=== PATIENT | male | born 1960 | race Caucasian/White ===

== ENCOUNTER 2022-08-19 09:19 | Emergency (ER) | payer SELFPAY ==
[2022-08-19 09:22] VITALS: BP 167/90; PULSE 69; RESP 18; TEMP 36.5; O2SAT 98
--- NOTE | 2022-08-19 09:30 | DI.CT_ITS ---
Exam(s) CT RENAL COLIC WO EXAM: CT RENAL COLIC WO CLINICAL HISTORY: R flank pain, hx stones. TECHNIQUE: Imaging Protocol: Axial computed tomography images with coronal and sagittal reformatted images were created and reviewed CONTRAST MATERIAL: Intravenous: none Oral: None COMPARISON: No exams were available for comparison FINDINGS: VISUALIZED LUNG BASES: No nodules nor pleural effusions evident. ABDOMEN: There is no ascites. LIVER: There are no obvious focal hepatic lesions evident of this noninfused study. GALLBLADDER/BILIARY: No obvious gallbladder pathology. CBD is not dilated. PANCREAS: No evidence of pancreatic mass nor dilatation of the pancreatic duct. SPLEEN: Spleen is not enlarged. No obvious intrasplenic lesions. ADRENALS: There are no significant adrenal masses. KIDNEYS:Left kidney unremarkable. In the right kidney there are both intrarenal calculi as well as a n obstructing calculus in the mid right ureter with dilatation of the ureter and kidney above this le jay as well as perinephric stranding. This obstructing calculus measures approximately 5 x 4 millime ters. There are no additional calculi seen in the right ureter below this level nor in the nondisten ded urinary bladder. There is, however, a larger calculus remaining in the right kidney measuring 1. 3 x 0.9 cm. Additional other tiny calculi are still evident in the right kidney. There are no calcu li in the opposite-left kidney.. ABDOMINAL AORTA: Abdominal aorta is not enlarged. LYMPH NODES: There is no retroperitoneal nor paraaortic adenopathy. ABDOMINAL WALL: No evidence of significant anterior abdominal wall nor inguinal hernia. GI: There is no evidence of bowel obstruction, free air, nor abscess. PELVIS: LYMPH NODES: There is no intrapelvic nor inguinal adenopathy. GI: No evidence of appendicitis.Sigmoid diverticulosis without evidence of acute diverticulitis. URINARY BLADDER: No calculi nor obvious masses evident REPRODUCTIVE: Prostate size upper normal. Seminal vesicles unremarkable. OSSEOUS: No significant osseous lesions. No fractures. There is ankylosis of the sacroiliac joints noted. IMPRESSION: 1. There is an obstructing 5 x 4 millimeter calculus at the mid level of the right ureter with signif icant dilatation of the collecting system above this level and perinephric decompression stranding. In addition, there are remaining calculi in the right kidney measuring up to 13 x 9 millimeters. No other significant focal renal findings and no findings in the opposite-left kidney. No calculi in th e urinary bladder. 2. Sigmoid diverticulosis but no evidence of acute diverticulitis. Called by myself to ER physician RADIATION DOSE DELIVERED: 849.11mGy.cm Total DLP DATA REPOSITORY: All CT scans at this facility are submitted to the National Radiology Data Registry (NRDR) Dose Index Registry (DIR) with the [employer] (ACR). RADIATION OPTIMIZATION: All CT scans at this facility use at least one of these dose optimization te chniques: automated exposure control; mA and/or kV adjustment per patient size (includes targeted exa ms where dose is matched to clinical indication); or iterative reconstruction.
--- NOTE | 2022-08-19 09:35 | W.ED.GENAD ---
Discharge Plan Disposition Patient Disposition: Home Condition: Improving Discharge Details Clinical Impression: Calculus of right ureter Primary Care Provider: Brenda,Local ED Provider: Mitchell Bermudez Home Meds and New Rx's Prescriptions: New oxycodone 5 mg tablet 5 mg PO Q8H PRN (Reason: pain) Qty: 9 0RF ondansetron 4 mg tablet,disintegrating 4 mg PO Q8H PRN (Reason: nausea and vomiting) Qty: 7 0RF Continued amlodipine 10 mg Tablet 10 mg PO DAILY pantoprazole 40 mg Tablet,Delayed Release (Dr/Ec) 40 mg PO DAILY celecoxib [Celebrex] 100 mg Capsule 100 mg PO BID Humira 40 mg/0.8 mL Syringe Kit See Rx Instructions .ROUTE .COMPLEX Rx Instructions: 40 mg subcutaneously twice a month pregabalin [Lyrica] 150 mg Capsule 150 mg PO DAILY Discharge Instructions Instructions: Kidney Stones (ED) Additional Instructions: I discussed your case with Dr. Bustos today. His office will call you for a follow-up appointment. The office number is [phone]. Return if you develop a fever, uncontrolled pain or vomiting, or any other acute concerns. Continue your regular medications including Flomax daily. Hydrate liberally so you maintain good urine output. Tylenol if needed for pain, with the prescribed oxycodone if needed for severe or breakthrough pain. Medical Decision Making This is a 61-year-old male with a history of previous kidney stones. He is visiting from [place] where he lives permanently, but is assisting his father at their home locally. He notes he developed onset of right-sided flank pain last night at 8 PM. He states that it comes in waves and radiates to his groin. He has been nauseated but no fever or vomiting. Has a history of ankylosing spondylitis for which she takes adalimumab. Arrives afebrile, and pain with blood pressure 167/90. Patient IV access established, screening labs obtained. Referred for urinalysis, lab studies, CT imaging. Urinalysis shows hematuria and ketones. BUN is 21, creatinine 1.8. White blood cell count 14, hematocrit 42, platelets 228. Electrolytes unremarkable. CT reveals right sided mid ureteral calculus with hydronephrosis. Case discussed and images reviewed with Dr. Bustos on-call for urology. He agrees with the need for probable intervention should the patient not passed the stone over the next 1 to 2 days. We will continue the Flomax. I will consent the patient for the use of oral analgesic at home. He is stable and improving at this time HPI General Mode of arrival: ambulatory. Date/Time Provider Initiated Documentation: 08/19/22 09:19. Limitations to Documentation: no limitations. Information obtained by: patient. History of Present Illness 61 year old M presents to the emergency department with the chief complaint of Right flank pain since 8 PM last night, described as moderate, severe and similar to prior episodes, Quality is described as stabbing and aching, and is localized to the back and left. Patient abdomen. Patient started experiencing this hour(s) and it has been intermittent. No relieving factors improve symptom(s), No exacerbating factors reported . Patient notes loss of appetite; denies chest pain, fever/chills and shortness of breath. Patient did receive the following treatments prior to arrival, other (Had [id number] pain medicines last night, none today) Related Data Home Medications Medication Instructions Recorded Confirmed adalimumab 40 mg/0.8 mL See Rx Instructions .Route .COMPLEX 08/19/22 08/19/22 subcutaneous syringe kit (Humira) amlodipine 10 mg tablet 10 mg PO DAILY 08/19/22 08/19/22 celecoxib 100 mg capsule (Celebrex) 100 mg PO BID 08/19/22 08/19/22 ondansetron 4 mg disintegrating 4 mg PO Q8H PRN nausea and 08/19/22 tablet vomiting #7 tabs oxycodone 5 mg tablet 5 mg PO Q8H PRN pain #9 tabs 08/19/22 pantoprazole 40 mg tablet,delayed 40 mg PO DAILY 08/19/22 08/19/22 release pregabalin 150 mg capsule (Lyrica) 150 mg PO DAILY 08/19/22 08/19/22 Previous Rx's Medication Instructions Recorded ondansetron 4 mg disintegrating 4 mg PO Q8H PRN nausea and 08/19/22 tablet vomiting #7 tabs oxycodone 5 mg tablet 5 mg PO Q8H PRN pain #9 tabs 08/19/22 Allergies Allergy/AdvReac Type Severity Reaction Status Date / Time No Known Allergies Allergy Unverified 08/19/22 09:25 General Stated Complaint: FlankPain JEFF: 3 Review of Systems Narrative: No fever, chills. Nauseated but no emesis. Recently well. Has ankylosing spondylitis he takes Humira. Lives in [place] but visiting with his father locally. 8 systems were reviewed. PFSH All Active Problems (Updated 08/19/22 @ 10:35 by Mitchell Bermudez MD) Calculus of right ureter (Acute) GERD (gastroesophageal reflux disease) (Chronic) Ankylosing spondylitis (Acute) Social History Smoking/Tobacco Use Status: Never Smoking risk assessment performed?: Yes Drug use: Occasionally Substance use type: marijuana Do you feel safe at home: Yes Do you feel safe in your relationship?: Yes Exam Narrative Exam Narrative: GEN: awake, alert, oriented 3. Pleasant, well groomed, interactive. HEAD: Normocephalic, atraumatic ENT: Mucous membranes moist, oropharynx unremarkable, External ear exam unremarkable EYES: PERRL, EOMI NECK: Full ROM, no IMANI, no menigismus CHEST/RESP: Nontender, clear to auscultation bilateral, no wheeze/rhonchi/rales CARDIOVASCULAR: RRR, no murmur, rub rodrigo. 2+ Rad pulse bilateral ABDOMEN: Soft, tender in the right lower quadrant and right flank. No rebound or guarding,, no mass. +Bowel sounds EXT: Full ROM, no edema, no rash Neuro: Grossly normal neurologic exam, conversant, interactive. Psych: Speech fluent, thoughts congruent, affect normal Course Vital Signs Vital signs: Vital Signs Temperature 36.5 C 08/19/22 09:22 Pulse 69 08/19/22 09:22 Respiratory Rate 18 08/19/22 09:22 Blood Pressure 167/90 H 08/19/22 09:22 Pulse Oximetry 98 08/19/22 09:22 Temperature 36.5 C 08/19/22 09:22 Temperature Source Skin 08/19/22 09:22 Pulse 69 08/19/22 09:22 Respiratory Rate 18 08/19/22 09:22 Respiratory Effort 08/19/22 09:24 Blood Pressure 167/90 H 08/19/22 09:22 Blood Pressure Position Supine 08/19/22 09:22 Pulse Oximetry 98 08/19/22 09:22 Oxygen Delivery Method Room Air 08/19/22 09:22 Oxygen Flow Rate 0 08/19/22 09:22 Pain Level 8 08/19/22 09:22
[2022-08-19 09:46] LABS: Abs Immature Grans 0.05 10^3/uL (0.0-0.06); Absolute Basophil Count 0.04 10^3/uL (0.0-0.2); Absolute Monocyte Count 1.19 10^3/uL (0.1-0.8); Basophils % 0.3; Eosinophils % 0.1; HCT 42.4 % (40.0-50.0); HGB 14.2 g/dL (13.5-17.5); Immature Grans % 0.3; Lymphocytes % 6.6; MCH 30.6 pg (27.0-33.0); MCHC 33.5 % (32.0-36.0); MCV 91 fL (80-95); MPV 9.5 fL (8.0-11.0); Monocytes % 8.1; Neutrophils % 84.6; Platelet Count 228 10^3/uL (130-400); RBC 4.64 10^6/uL (4.36-5.78); RDW 12.6 % (11.8-14.1); RDW-SD 42.1 fL; WBC 14.64 10^3/uL (4.4-10.8)
[2022-08-19 09:49] LABS: Absolute Eosinophil Count 0.01 10^3/uL (0.0-0.7); Absolute Lymphocyte Count 0.97 10^3/uL (1.2-3.4); Absolute Neutrophil Count 12.39 10^3/uL (1.2-6.7)
[2022-08-19 09:56] LABS: Anion Gap 9.6 mmol/L (3-11); BUN 21 mg/dL (7-18); CO2 24.4 mmol/L (21.0-32.0); CREATININE 1.8 mg/dL (0.70-1.30); Chloride 102 mmol/L (98-107); Estimated GFR 41.77 (mL/min/1.73m2); Glucose 139 mg/dL (74-106); Sodium 136 mmol/L (136-145)
[2022-08-19] MEDS: Ketorolac 30 MG/ML VIAL 15 MG IVP (09:57)
[2022-08-19] MEDS: Ondansetron 4 MG/2 ML VIAL IVP (09:57)
[2022-08-19] MEDS: Normal Saline 1,000 ML 150 ML IV (09:57)
[2022-08-19] MEDS: Normal Saline Flush 10 ML SYR IVP (09:58)
[2022-08-19] MEDS: HYDROmorphone 2 MG/ML SYR 1 MG IVP (09:58)
[2022-08-19 10:02] LABS: Bilirubin Negative (Negative); Blood Moderate (Negative); Clarity Clear (Clear); Glucose Negative (Negative); Ketones 80 mg/dL (Negative); Leukocyte Esterase Negative (Negative); Nitrite Negative (Negative); Specific Gravity >= 1.030 (1.005-1.025); Urobilinogen 0.2 EU/dL (Up TO 0.2); pH 5.5 (5-8)
[2022-08-19 10:09] LABS: Bacteria Rare HPF (Negative); C & S Indicated? No; Casts Negative LPF (Negative); Crystals Rare Calcium Oxalate HPF (Negative); Epithelial Cells Rare HPF (Negative); Mucus Trace (Negative); WBC 0-2 HPF (0-5)
[2022-08-19 11:03] VITALS: BP 145/88; PULSE 64; RESP 14; TEMP 36.6; O2SAT 94
== END 2022-08-19 11:11 | disposition home or self-care (01) ==
PROVIDERS: Emergency Provider Emergency Medicine
DX: N13.2 Hydronephrosis with renal and ureteral calculous obstruction (principal)
CPT/HCPCS: 80048; 96361; 96374; 96375; 99284; 74176; 81003; 81015; 85025; J1170; J1885; J2405

== ENCOUNTER 2022-09-11 09:13 | Day surgery (SDC) | payer SELFPAY ==
[2022-09-11] VITALS (7 sets, daily range): BP systolic 115–134; BP diastolic 72–85; PULSE 44–54; RESP 10–16; TEMP 36.5–36.7; O2SAT 96–100; BMI 28.9
[2022-09-11] MEDS: Lactated Ringers 1,000 ML 80 ML IV (10:05)
--- NOTE | 2022-09-11 11:31 | W.ANESPRE ---
General Info Date of Service Date Performed: 09/11/22 Height: 5 ft 6 in Weight: 81.3 kg Body Mass Index (BMI): 28.9 Surgical Procedure: Operation Date: 09/11/22 11:25 Proposed Procedure Side Surgeon p Cystoscopy/Possible Laser/Retrograde/Ureteroscopy/ Possible Stent Placement Right Sree Bustos MD Meds Allergies and Home Medications Allergies Allergy/AdvReac Type Severity Reaction Status Date / Time No Known Allergies Allergy Unverified 09/09/22 15:34 Home Medication Medication Instructions Recorded adalimumab 40 mg/0.8 mL See Rx Instructions .Route .COMPLEX 08/19/22 subcutaneous syringe kit (Humira) amlodipine 10 mg tablet 10 mg PO HS 08/19/22 celecoxib 100 mg capsule (Celebrex) 100 mg PO BID 08/19/22 ondansetron 4 mg disintegrating 4 mg PO Q8H PRN nausea and 08/19/22 tablet vomiting #7 tabs pantoprazole 40 mg tablet,delayed 40 mg PO HS 08/19/22 release dexamethasone 1 mg tablet 1 mg PO DAILY 09/04/22 oxycodone 5 mg tablet 5 mg PO Q4H PRN PRN pain #20 tabs 09/04/22 pregabalin 150 mg capsule (Lyrica) 75 mg PO HS 09/04/22 tamsulosin 0.4 mg capsule (Flomax) 0.4 mg PO DAILY 09/04/22 Current Visit Medications: Current Medications Generic Name Dose Route Start Last Admin Trade Name Freq PRN Reason Stop Dose Admin Ringer's Solution 1,000 mls @ 80 mls/hr 09/11/22 06:00 09/11/22 10:05 IV 09/11/22 23:59 80 mls/hr INFUSION KARELY Administration Cefazolin Sodium/Dextrose 2 gm in 50 mls @ 100 mls/hr 09/11/22 06:00 Ancef Duplex IVPB 09/11/22 23:59 PREOP KARELY Gentamicin Sulfate 120 mg/ 103 mls @ 206 mls/hr 09/11/22 06:00 Sodium Chloride IVPB 09/11/22 16:00 PREOP KARELY IV Miscellaneous Supplies 1 each 09/11/22 06:00 Iv Access IV 09/11/22 23:59 DIRECTED KARELY Sodium Chloride 0 ml 09/11/22 06:00 Normal Saline Flush 10 Ml Syr IV 09/11/22 23:59 PRN PRN Sodium Chloride 0 ml 09/11/22 06:00 Normal Saline 10 Ml Vial IJ 09/11/22 23:59 DIRECTED PRN Sterile Water 0 ml 09/11/22 06:00 Water,Injection,Sterile 10 Ml Vial IJ 09/11/22 23:59 DIRECTED PRN PFSH Active Problems Active Problems: Problem Status Onset Code Calculus of right ureter N20.1 Medical History Medical History Ankylosing spondylitis GERD (gastroesophageal reflux disease) Rheumatoid aortitis Surgical History Surgical History Status post total shoulder arthroplasty Tobacco Smoking/Tobacco Use Status: Former Tobacco Use Substance Use Substance use: Occasionally Substance use type: marijuana Vital Signs and Lab Results Vital Signs Most Recent Vital Signs in EMR: Most Recent Vital Signs Temp Pulse Resp BP Pulse Ox 36.5 C 54 L 16 132/78 97 09/11/22 09:35 09/11/22 09:35 09/11/22 09:35 09/11/22 09:35 09/11/22 09:35 Lab Results Blood Type / Crossmatch: No Data to Display Complete Blood Count: White Blood Count 14.64 10^3/uL (4.4-10.8) H 08/19/22 09:35 Red Blood Count 4.64 10^6/uL (4.36-5.78) 08/19/22 09:35 Hemoglobin 14.2 g/dL (13.5-17.5) 08/19/22 09:35 Hematocrit 42.4 % (40.0-50.0) 08/19/22 09:35 Platelet Count 228 10^3/uL (130-400) 08/19/22 09:35 Complete Metabolic Panel: Sodium 136 mmol/L (136-145) 08/19/22 09:35 Potassium 4.0 mmol/L (3.5-5.1) 08/19/22 09:35 Chloride 102 mmol/L (98-107) 08/19/22 09:35 Carbon Dioxide 24.4 mmol/L (21.0-32.0) 08/19/22 09:35 BUN 21 mg/dL (7-18) H 08/19/22 09:35 Creatinine 1.8 mg/dL (0.70-1.30) H 08/19/22 09:35 Est GFR (CKD-EPI 2020) 41.77 (mL/min/1.73m2) 08/19/22 09:35 Calcium 9.0 mg/dL (8.5-10.1) 08/19/22 09:35 Glucose 139 mg/dL (74-106) H 08/19/22 09:35 Liver Function Panel: No Data to Display Coagulation Panel: No Data to Display Cardiac Panel: No Data to Display Arterial Blood Gas: No Data to Display Venous Blood Gas: No Data to Display Pancreas Panel: No Data to Display Thyroid Panel: No Data to Display Infectious Disease: No Data to Display Blood Cultures: No Data to Display Toxicology Panel: No Data to Display Anesthesia Assessment and Plan Anesthesia History Personal History: No History of Anesthesia Complications Family History: No Family History of Anesthesia Complications Exercise Tolerance Exercise Tolerance: Metabolic Equivalents>4 Pertinent Negatives Pertinent Negatives: No Symptoms of GERD (controlled w meds) and No Major Cardiovascular Symptoms or Complaints Cardiac & Pulmonary Exam Cardiac Exam: Normal S1/S2 Heart Sounds Pulmonary Exam: Clear Bilateral Breath Sounds Implantable Cardiac Device Does patient have a Pacemaker or an ICD?: No Airway Exam Known Difficult Airway: No Mallampati Class: 3 Mouth Opening: Normal (> 3cm) Thyromental Distance: Greater than 3 cm Neck Range of Motion: Limited ROM Neck Circumference: Thick Teeth Condition: Normal Dentition ASA Classification ASA Score: ASA 2 Emergency Case?: No NPO Status NPO Status: NPO Clears >2 hours, Solids >8 hours Anesthesia Plan Resuscitation Status: Full Code Anesthesia Technique: General Anesthesia Airway Planned: LMA Monitors Used: Standard Monitors Preoperative Comments:: Has back ache. Will give 15 Christi dol iv
[2022-09-11] MEDS: GENTAMICIN 120 MG in Normal Saline 100 ML 206 MG IVPB (11:52)
[2022-09-11] MEDS: Ketorolac 15 MG/ML VIAL IVP (11:58)
--- NOTE | 2022-09-11 12:30 | DI.RAD_ITS ---
Exam(s) XR RETROGRADE IN OR EXAM: XR RETROGRADE IN OR CLINICAL HISTORY: RIGHT URETERAL STONE. TECHNIQUE: 2D digital imaging was performed. COMPARISON: No exams were available for comparison FINDINGS: Fluoroscopy provided during urologic procedure by the urologist. See procedure report for details. Total fluoroscopy time 47 seconds IMPRESSION: Radiation exposure index cumulative dose: Parisr=11.13mGY DATA REPOSITORY: RADIATION DOSE DELIVERED:
--- NOTE | 2022-09-11 12:30 | W.PM.HP.N ---
Date of service: 09/11/22 Time of Service: 12:30 Assessment and Plan Assessment and plan (1) Calculus of right ureter: Status: Acute Assessment and plan: He has not passed his stone with conservative management. We will move forward with ureteroscopy, possible holmium laser lithotripsy and stone manipulation of his obstructing right ureteral stone. History of Present Illness History of Present Illness Chief Complaint: Ureteral stone Narrative: This is a 61-year-old gentleman who a history of multiple kidney stones.? He believes his stones have been bilateral.? He is not certain about the stones chemical composition. In the past, he has been treated with ESWL on at least 3 occasions.? He has also passed stones spontaneously.? His previous urologic care occurred in [place].? He is still a resident in [place], but is currently here in [place] helping his father after his mother recently . He went to the emergency room about 3 weeks ago with right-sided back pain and nausea.? He was found to have multiple nonobstructing stones in the right kidney (including a 13 mm stone in the right upper pole) as well and has a 5 mm mid ureteral stone on the right. He has been unable to pass his stone with conservative management. He has intermittent pain but no fever or chills. He may have seen gross hematuria on ne occasion. Review of Systems Narrative: No fevers or chills No vision change or dysphasia No diabetes or thyroid No shortness of breath, cough or hemoptysis No chest pain or palpitations Hx GERD. No hepatitis, ulcers, jaundice No seizures, strokes or peripheral neuropathy No bleeding disorders or anemia No gout PFSH All Active Problems Calculus of right ureter (Acute) Medical History Ankylosing spondylitis GERD (gastroesophageal reflux disease) Rheumatoid aortitis Surgical History Status post total shoulder arthroplasty Social History Smoking/Tobacco Use Status: Former Tobacco Use Quit Date: 07/27/86 Smoking risk assessment performed?: Yes Drug use: Occasionally Substance use type: marijuana Do you feel safe at home: Yes Do you feel safe in your relationship?: Yes Meds Allergies and Home Medications Allergies Allergy/AdvReac Type Severity Reaction Status Date / Time No Known Allergies Allergy Unverified 09/09/22 15:34 Home Medications Medication Instructions Recorded Confirmed Type adalimumab 40 mg/0.8 mL See Rx Instructions .Route .COMPLEX 08/19/22 09/11/22 History subcutaneous syringe kit (Humira) amlodipine 10 mg tablet 10 mg PO HS 08/19/22 09/11/22 History celecoxib 100 mg capsule (Celebrex) 100 mg PO BID 08/19/22 09/11/22 History ondansetron 4 mg disintegrating 4 mg PO Q8H PRN nausea and 08/19/22 09/09/22 Rx tablet vomiting #7 tabs pantoprazole 40 mg tablet,delayed 40 mg PO HS 08/19/22 09/11/22 History release dexamethasone 1 mg tablet 1 mg PO DAILY 09/04/22 09/11/22 History oxycodone 5 mg tablet 5 mg PO Q4H PRN PRN pain #20 tabs 09/04/22 09/11/22 Rx pregabalin 150 mg capsule (Lyrica) 75 mg PO HS 09/04/22 09/11/22 History tamsulosin 0.4 mg capsule (Flomax) 0.4 mg PO DAILY 09/04/22 09/11/22 History Exam Const General: cooperative Neck Neck: supple Resp Effort & Inspection: normal respiratory effort Auscultation: clear to auscultation bilaterally Cardio Rate: regular rate Rhythm: regular rhythm Neuro General: patient alert, patient awake and patient oriented x3 Results Last Vital Signs Temp 36.5 C 09/11/22 09:35 Pulse 54 L 09/11/22 09:35 Resp 16 09/11/22 09:35 BP 132/78 09/11/22 09:35 Pulse Ox 97 09/11/22 09:35 Time Spent Time spent with Patient: <40 minutes Time was spent: other
[2022-09-11] MEDS: ceFAZolin 2 GM/50 ML BAG IVPB (13:09)
[2022-09-11] MEDS: Lidocaine 2% Jelly 6 ML SYR (13:25)
--- NOTE | 2022-09-11 13:38 | W.ANESPRE ---
General Info Date of Service Date Performed: 09/11/22 Height: 5 ft 6 in Weight: 81.3 kg Body Mass Index (BMI): 28.9 Surgical Procedure: Operation Date: 09/11/22 11:25 Proposed Procedure Side Surgeon p Cystoscopy/Possible Laser/Retrograde/Ureteroscopy/ Possible Stent Placement Right Sree Bustos MD Actual Procedure Side Surgeon p Cystoscopy/Laser/Retrograde pyleogram/Ureteroscopy/ Possible Stent Placement Right Sree Bustos MD Pre-Op Diagnosis Post-Op Diagnosis RIGHT URETERAL STONE RIGHT URETERAL STONE Meds Allergies and Home Medications Allergies Allergy/AdvReac Type Severity Reaction Status Date / Time No Known Allergies Allergy Unverified 09/09/22 15:34 Home Medication Medication Instructions Recorded adalimumab 40 mg/0.8 mL See Rx Instructions .Route .COMPLEX 08/19/22 subcutaneous syringe kit (Humira) amlodipine 10 mg tablet 10 mg PO HS 08/19/22 celecoxib 100 mg capsule (Celebrex) 100 mg PO BID 08/19/22 ondansetron 4 mg disintegrating 4 mg PO Q8H PRN nausea and 08/19/22 tablet vomiting #7 tabs pantoprazole 40 mg tablet,delayed 40 mg PO HS 08/19/22 release dexamethasone 1 mg tablet 1 mg PO DAILY 09/04/22 oxycodone 5 mg tablet 5 mg PO Q4H PRN PRN pain #20 tabs 09/04/22 pregabalin 150 mg capsule (Lyrica) 75 mg PO HS 09/04/22 tamsulosin 0.4 mg capsule (Flomax) 0.4 mg PO DAILY 09/04/22 Current Visit Medications: Current Medications Generic Name Dose Route Start Last Admin Trade Name Freq PRN Reason Stop Dose Admin Ringer's Solution 1,000 mls @ 80 mls/hr 09/11/22 06:00 09/11/22 10:05 IV 09/11/22 23:59 80 mls/hr INFUSION KARELY Administration Cefazolin Sodium/Dextrose 2 gm in 50 mls @ 100 mls/hr 09/11/22 06:00 Ancef Duplex IVPB 09/11/22 23:59 PREOP KARELY Gentamicin Sulfate 120 mg/ 103 mls @ 206 mls/hr 09/11/22 06:00 09/11/22 11:52 Sodium Chloride IVPB 09/11/22 16:00 206 mls/hr PREOP KARELY Administration IV Miscellaneous Supplies 1 each 09/11/22 06:00 Iv Access IV 09/11/22 23:59 DIRECTED KARELY Ketorolac Tromethamine 15 mg 09/11/22 11:43 09/11/22 11:58 Ketorolac 15 Mg/Ml Vial IVP 09/16/22 11:42 15 mg .X 1 DOSE PRN Administration Pain Sodium Chloride 0 ml 09/11/22 06:00 Normal Saline Flush 10 Ml Syr IV 09/11/22 23:59 PRN PRN Sodium Chloride 0 ml 09/11/22 06:00 Normal Saline 10 Ml Vial IJ 09/11/22 23:59 DIRECTED PRN Sterile Water 0 ml 09/11/22 06:00 Water,Injection,Sterile 10 Ml Vial IJ 09/11/22 23:59 DIRECTED PRN PFSH Active Problems Active Problems: Problem Status Onset Code Calculus of right ureter N20.1 Medical History Medical History Ankylosing spondylitis GERD (gastroesophageal reflux disease) Rheumatoid aortitis Surgical History Surgical History Status post total shoulder arthroplasty Tobacco Smoking/Tobacco Use Status: Former Tobacco Use Substance Use Substance use: Occasionally Substance use type: marijuana Vital Signs and Lab Results Vital Signs Most Recent Vital Signs in EMR: Most Recent Vital Signs Temp Pulse Resp BP Pulse Ox 36.5 C 54 L 16 132/78 97 09/11/22 09:35 09/11/22 09:35 09/11/22 09:35 09/11/22 09:35 09/11/22 09:35 Lab Results Blood Type / Crossmatch: No Data to Display Complete Blood Count: White Blood Count 14.64 10^3/uL (4.4-10.8) H 08/19/22 09:35 Red Blood Count 4.64 10^6/uL (4.36-5.78) 08/19/22 09:35 Hemoglobin 14.2 g/dL (13.5-17.5) 08/19/22 09:35 Hematocrit 42.4 % (40.0-50.0) 08/19/22 09:35 Platelet Count 228 10^3/uL (130-400) 08/19/22 09:35 Complete Metabolic Panel: Sodium 136 mmol/L (136-145) 08/19/22 09:35 Potassium 4.0 mmol/L (3.5-5.1) 08/19/22 09:35 Chloride 102 mmol/L (98-107) 08/19/22 09:35 Carbon Dioxide 24.4 mmol/L (21.0-32.0) 08/19/22 09:35 BUN 21 mg/dL (7-18) H 08/19/22 09:35 Creatinine 1.8 mg/dL (0.70-1.30) H 08/19/22 09:35 Est GFR (CKD-EPI 2020) 41.77 (mL/min/1.73m2) 08/19/22 09:35 Calcium 9.0 mg/dL (8.5-10.1) 08/19/22 09:35 Glucose 139 mg/dL (74-106) H 08/19/22 09:35 Liver Function Panel: No Data to Display Coagulation Panel: No Data to Display Cardiac Panel: No Data to Display Arterial Blood Gas: No Data to Display Venous Blood Gas: No Data to Display Pancreas Panel: No Data to Display Thyroid Panel: No Data to Display Infectious Disease: No Data to Display Blood Cultures: No Data to Display Toxicology Panel: No Data to Display Anesthesia Assessment and Plan Anesthesia History Personal History: No History of Anesthesia Complications Family History: No Family History of Anesthesia Complications Exercise Tolerance Exercise Tolerance: Metabolic Equivalents>4 Implantable Cardiac Device Does patient have a Pacemaker or an ICD?: No Airway Exam Known Difficult Airway: No Mallampati Class: 3 Mouth Opening: Normal (> 3cm) Thyromental Distance: Greater than 3 cm Neck Range of Motion: Limited ROM Neck Circumference: Thick Teeth Condition: Normal Dentition
[2022-09-11] MEDS: Omnipaque 300 MG/ML 50 ML BTL (13:50)
--- NOTE | 2022-09-11 14:03 | W.PM.DSUDISC ---
Date of service: 09/11/22 Time of Service: 14:03 Discharge Plan Disposition Patient Disposition: Home Condition: Stable Discharge Details Reason For Visit: ureteroscopy Attending Provider: Sree Bustos Primary Care Provider: No,Local Home Meds and New Rx's Prescriptions: No Action dexamethasone 1 mg tablet 1 mg PO DAILY tamsulosin [Flomax] 0.4 mg capsule 0.4 mg PO DAILY oxycodone 5 mg tablet 5 mg PO Q4H PRN MDD 6 PRN (Reason: pain) Qty: 20 0RF amlodipine 10 mg Tablet 10 mg PO HS pantoprazole 40 mg Tablet,Delayed Release (Dr/Ec) 40 mg PO HS celecoxib [Celebrex] 100 mg Capsule 100 mg PO BID Humira 40 mg/0.8 mL Syringe Kit See Rx Instructions .ROUTE .COMPLEX Rx Instructions: 40 mg subcutaneously twice a month ondansetron 4 mg tablet,disintegrating 4 mg PO Q8H PRN (Reason: nausea and vomiting) Qty: 7 0RF Patient Comments: prescribed but not used pregabalin [Lyrica] 150 mg capsule 75 mg PO HS Discharge Instructions Additional Instructions: no need to strain urine followup 6 to 8 weeks for renal US to be done in office Activity:: Activity as Tolerated Shower/Bathe:: 24 hours Diet:: As Tolerated Discharge Orders Discharge Orders: Discharge Order (Routine); Ordered 09/11/22 Ordered By: Sree Bustos DS: Diagnosis Discharge Diagnosis (1) Calculus of right ureter: Status: Acute
--- NOTE | 2022-09-11 14:05 | W.PM.OP ---
Date of service: 09/11/22 Time of Service: 14:06 Operative Note Operative Note PRE-OP DIAGNOSIS: right ureteral stone POST-OP DIAGNOSIS: same PROCEDURE: cystoscopy, right retrograde pyelogram, right ureteroscopy with holmium laser lithotripsy and extraction of stone fragments SURGEON: Sree Bustos Refer to Anesthesia Record ESTIMATED BLOOD LOSS: 10 PATHOLOGY: other (stones for chemical analysis) COMPLICATIONS: None Patient was transported to: PACU Patient's condition: stable Implants: none Indications: This is a 61-year-old gentleman who has a history of bilateral kidney stones. He has passed multiple stones previously and he has had ESWL treatments. He is currently visiting our area and he developed renal colic. He was seen in our emergency department and found to have a mid right ureteral stone. The stone has not progressed with conservative management and he presents now for stone manipulation. Findings: Stone in right proximal ureter Procedure Description: The patient was given IV antibiotics and brought to the operating room on 09/11/2022. After successful induction of general anesthesia, he was placed in the dorsal lithotomy position. His genitalia was prepped and draped. 2% Xylocaine jelly was instilled into the urethra to act as a local anesthetic. A 22 [place] rigid cystoscope was passed through the urethra into the bladder. The urethra and bladder were inspected with the 30 degree lens. The pendulous, bulbar and membranous urethra was all appeared normal with no strictures. The prostatic urethra showed some lateral lobe enlargement but no significant median lobe. The bladder neck was entered and the bladder mucosa was inspected. Both ureteral orifices appeared normal with no blood seen coming from either side. The right ureteral orifice was cannulated with a 5 [place] access catheter and a retrograde film was obtained by injecting Omnipaque through the access catheter under fluoroscopic guidance. His stone was outlined in the right proximal ureter. A Glidewire was then advanced through the lumen of the stent and the stent was removed. Its dual-lumen catheter was advanced over the wire and a second wire was positioned. We chose one of the wires as a working wire and the other as a safety wire. A ureteral access sheath was advanced over the working wire. The sheath was advanced to the mid ureter. The flexible ureteroscope was then passed through the lumen of the access sheath and advanced up until the stone was visualized. The stone was treated with a 365 ?m holmium laser fiber. We used a dusting setting of a power of 0.5 and a rate of 20. The stone fragmented quite nicely. We were then able to grasp multiple fragments in a 0 tip stone basket. The fragments were sent to pathology for chemical analysis. Previously, the patient has had significant stent discomfort. We evaluated the ureter after extraction of the stone by injecting Omnipaque through an access catheter under fluoroscopic guidance. No extravasation of contrast was seen in the drainage of contrast down the ureter was also visualized. We then elected not to place a ureteral stent in this gentleman. All scopes and wires were removed. The patient tolerated the procedure with no complications.
[2022-09-11] MEDS: fentaNYL 100 MCG/2 ML VIAL IVP ×2 (14:13→14:23)
[2022-09-11] MEDS: oxyCODONE 5 MG TAB PO (15:38)
--- NOTE | 2022-09-12 07:04 | W.ANESPOSTOP ---
Postoperative Evaluation Date, Time and Location Date Performed: 09/11/22 Time Performed: 15:20 Patient Location: PACU Vital Signs Most Recent Imported Vital Signs: Most Recent Vital Signs Temp Pulse Resp BP Pulse Ox 36.6 C 50 L 16 134/85 96 09/11/22 15:33 09/11/22 15:33 09/11/22 15:33 09/11/22 15:33 09/11/22 15:33 Pain Score Most Recent Pain Score: Most Recent Pain Score Pain Level 5 09/11/22 15:33 Assessment Mental Status: Awake (Alert & Oriented to Patient Baseline) Airway and Respiratory Function: Patent airway with normal (patient baseline) respiratory exam Cardiovascular Function: Hemodynamically Stable Hydration Status: Adequately Hydrated Nausea & Vomiting: No Nausea or Vomiting Pain: Pt. Denies Any Pain Peripheral Nerve Block: Patient did not receive a nerve block Postoperative Comments:: saw in pacu doing well late entry note
[2022-09-19 15:37] LABS: Source: Right Ureter
== END 2022-09-11 16:02 | disposition home or self-care (01) ==
PROVIDERS: Visit Provider Urology
PROC: (CPT 52353; principal; 2022-09-11 11:15)
DX: N20.1 Calculus of ureter (principal)
CPT/HCPCS: 52353; 74420; 82365; J0690; J1100; J1580; J1885; J2405; J2704; J3010; Q9967